=== PATIENT | female | born 1970 | race Caucasian/White ===

== ENCOUNTER 2019-01-16 08:30 | Day surgery (SDC) | payer OTHER ==
[2019-01-16] MEDS ORDERED: LIDOCAINE 2% (SDV) 5 ML INJ (10:26)
[2019-01-16] MEDS ORDERED: PROPOFOL 40 ML (10:26)
== END 2019-01-16 12:05 | disposition home or self-care (01) ==
LOC: GIL 08:30
DX: Z12.11 Encounter for screening for malignant neoplasm of colon (principal); K64.4 Residual hemorrhoidal skin tags; K29.30 Chronic superficial gastritis without bleeding
CPT/HCPCS: 43239; 88305; 88312